=== PATIENT | male | born 1985 ===

== ENCOUNTER 2023-07-05 18:11 | Emergency (ER) | payer SELFPAY ==
[~2023-07-05] VITALS: Ht 180.3 cm; Wt 105.0 kg
[2023-07-05 18:22] VITALS: BP 157/113; PULSE 69; RESP 18; TEMP 97.8; O2SAT 95
== END 2023-07-05 19:32 | disposition left against medical advice (07) ==
LOC: ER 18:12
DX: M79.605 Pain in left leg (principal); Z53.21 Procedure and treatment not carried out due to patient leaving prior to being seen by health care provider
CPT/HCPCS: 99281